=== PATIENT | female | born 1995 | race Caucasian/White ===

== ENCOUNTER 2021-07-10 15:06 | Emergency (ER) | payer OTHER ==
[~2021-07-10] VITALS: Ht 160 cm; Wt 57.6 kg
[2021-07-10 15:06] VITALS: BP_SYST 144
--- NOTE | 2021-07-10 15:06 | NUR ---
Patient triaged and placed in waiting room. VSS and patient appears in no acute distress at this time. Accompanied by SELF, awaiting available bed, and MD notified of need for MSE.
--- NOTE | 2021-07-10 15:43 | NUR ---
BROUGHT BACK TO BED #4 AND REPORT GIVEN TO HANNAH
--- NOTE | 2021-07-10 15:45 | NUR ---
Patient AOx4 ambulated to bedside complaining of pain to right inguinal with a bump. No redness or induration noted. Reports hx of infected ingrown hair and treated with Sulfa and had reaction. Pain with movement. 11/30. No other complaints per patient.
--- NOTE | 2021-07-10 15:49 | NUR ---
DR CEDENO AT BEDSIDE FOR EVALUATION
--- NOTE | 2021-07-10 16:05 | NUR ---
Note jessydenisa in EDM - 07/10/21 at 1607 by [email or web address] Patient Dmitriy ambulated to bedside complaining of pain to right inguinal with a bump. No redness or induration noted. Reports hx of infected ingrown hair and treated with Sulfa and had reaction. Pain with movement. 11/30. No other complaints per patient.
--- NOTE | 2021-07-10 16:08 | NUR ---
report given to GABRIELA Piña for continuation of care
[2021-07-10] MEDS ORDERED: IBUP-1969 PO (16:16)
[2021-07-10 16:25] VITALS: BP_SYST 110
--- NOTE | 2021-07-10 16:26 | NUR ---
Patient given written and verbal discharge instructions and verbalizes understanding. DORON case MD discussed with patient the results and treatment provided. Patient in stable condition. ID arm band removed. Rx motrin of given. Patient educated on pain management and to follow up with PMD. Pain Scale 5. Opportunity for questions provided and answered. Medication side effect fact sheet provided.
== END 2021-07-10 16:26 | disposition home or self-care (01) ==
LOC: SED 15:06
DX: R59.1 Generalized enlarged lymph nodes (principal); Z88.8 Allergy status to other drugs, medicaments and biological substances; Z79.899 Other long term (current) drug therapy
CPT/HCPCS: 81025; 99284